=== PATIENT | female | born 1975 | race Two or more races ===

== ENCOUNTER 2016-03-05 08:03 | Emergency (ER) | payer MEDICAID, OTHER ==
[~2016-03-05] VITALS: Ht 162.6 cm; Wt 72.6 kg
[~2016-03-05 08:03] MED LIST: ALBUTEROL SULF8.5 GM INH; ALPRAZOLAM0.25 MG ORAL; BENADRYL25 MG ORAL; BENADRYL50 MG ORAL; CIPROFLOXACIN500 M2 ORAL; CLARITHROM250 MG/5 M PO; FLOMAX0.4 MG ORAL; IBUPROFEN600 MG ORAL; IBUPROFEN800 MG ORAL; METRONIDAZOLE500 MG ORAL; NAPROXEN500 M2 PO; NITROFURANTOIN100 M2 ORAL; NKM; NORCO 5-325 TA1 EACH ORAL; OMEPRAZOLE40 M1 ORAL; ONDANSETRON ODT4 MG ORAL; PEPCID20 MG ORAL; PHENAZOPYRIDIN200 MG ORAL; PREDNISONE20 MG ORAL; RANITIDINE HCL150 MG ORAL; SOMA350 MG PO; ZOFRAN ODT4 MG ORAL; ZOFRAN4 MG ORAL
[2016-03-05] MEDS ORDERED: IBUPROFEN600 MG ORAL (08:23)
[2016-03-05] MEDS ORDERED: Oxycodone/Acetaminophen 5-325 ORAL ONE (08:45)
[2016-03-05] MEDS ORDERED: IBUPROFEN800 M1 PO (08:45)
--- NOTE | 2016-03-05 09:07 | Emergency Room Report ---
History of Present Illness General Chief Complaint: Lower Extremity Injury Source: Patient Present Illness HPI 40 YO M with left foot pain for 4 days. Works as housekeeping lead. Denies direct trauma, falls, ankle twist. Denies fever/chills. Denies calf pain/swelling, lower extremity weakness. Doesnt run or exercise. Denies history of DM. Allergies: Coded Allergies: PENICILLINS (Verified Allergy, Mild, 04/26/12) Patient History Past Medical History: none Past Surgical History: none Pertinent Family History: none Social History: Denies: alcohol use, drug use, smoking Now: No Immunizations: UTD Reviewed Nursing Documentation: PMH: Agreed, PSxH: Agreed Nursing Documentation-PMH Past Medical History: No Stated History Hx Asthma: Yes Hx Gastrointestinal Problems: Yes - SBO, hiatal hernia Review of Systems All Other Systems: negative except mentioned in HPI Physical Exam Vital Signs Date Time Temp Pulse Resp B/P Pulse Ox O2 Delivery O2 Flow Rate FiO2 03/05/16 08:18 98.2 72 18 130/80 99 Room Air Sp02 EP Interpretation: reviewed, normal General Appearance: normal inspection, well appearing, no apparent distress, alert Head: atraumatic ENT: normal ENT inspection, hearing grossly normal, normal voice Neck: normal inspection, full range of motion, supple, no bony tend Respiratory: normal inspection, lungs clear, normal breath sounds, no respiratory distress, no retraction, no wheezing Cardiovascular #1: regular rate, rhythm, no edema Gastrointestinal: normal inspection, normal bowel sounds, non tender, soft, no guarding, no hernia Genitourinary: no CVA tenderness Musculoskeletal: normal inspection, back normal, normal range of motion, non- tender, no calf tenderness, Ze's Sign negative, other - Left foot: No obvious swelling, deformity or inflammation. Significant swelling to heel. No palpable bony ttp or spurs Neurologic: normal inspection, alert, responsive, speech normal Psychiatric: normal inspection, judgement/insight normal, mood/affect normal Skin: normal inspection, normal color, no rash Medical Decision Making Diagnostic Impression: Primary Impression: Plantar fasciitis of left foot ER Course 40 YO F with left foot pain. Xray unremarkable for occult fx Analgesia provided, improved Likely plantar fasciitis Advised plantar exercises, provided info Advised ICE, NSAIDS, PMD followup for Podiatry referral [place] home Last Vital Signs Date Time Temp Pulse Resp B/P Pulse Ox O2 Delivery O2 Flow Rate FiO2 03/05/16 08:18 98.2 72 18 130/80 99 Room Air Status: improved Disposition: HOME, SELF-CARE Condition: Improved Scripts Ibuprofen (Ibuprofen) 800 Mg Tablet 800 MG PO TID for 7 Days, #30 TAB Prov: DEYSI WALLER M.D. 03/05/16 Referrals: NON PHYSICIAN (PCP) Additional Instructions: - Apply ice 3-4 times a day (place foot in container of ice and water for best results) - Take Ibuprofen 800mg three times a day with food - Buy a padded heel support/insole for your sneakers - Ask your primary care doctor for a Podiatry referral DEYSI WALLER M.D. Mar 05, 2016 09:06
[2016-03-05 09:31] VITALS: BP 130/80
--- NOTE | 2016-03-05 11:53 | Diagnostic Imaging Report ---
Indication: Pain Comparison: None Findings: 3 views of the left foot were obtained. No acute fractures, malalignment, erosions or periostitis are identified. Bone mineralization is within normal limits. Soft tissues are unremarkable. Impression: No acute findings
== END 2016-03-05 09:34 | disposition home or self-care (01) ==
LOC: EMR 08:46
DX: M72.2 Plantar fascial fibromatosis (principal); E11.9 Type 2 diabetes mellitus without complications; Z87.09 Personal history of other diseases of the respiratory system
CPT/HCPCS: 99283

== ENCOUNTER 2016-05-28 15:37 | Emergency (ER) | payer OTHER ==
[~2016-05-28] VITALS: Ht 162.6 cm; Wt 82.6 kg
[~2016-05-28 15:37] MED LIST changes: +IBUPROFEN800 M1 PO
[2016-05-28] MEDS ORDERED: Morphine Sulfate 4mg/ml Inj IVP ONE (16:15)
[2016-05-28 16:30] LABS: APPEARANCE,URINE CLEAR; KETONES,URINE 1+ (NEGATIVE); LEUKOCYTE ESTERASE ,URINE 3+ (NEGATIVE); NITRITE,URINE NEGATIVE (NEGATIVE); PH,URINE 7 (4.5-8.0); PROTEIN,URINE NEGATIVE (NEGATIVE); UROBILINOGEN,URINE NORMAL MG/DL (0.0-1.0)
[2016-05-28 16:33] LABS: BASOPHILS % (AUTO) 0.8 % (0.0-2.0); EOSINOPHILS % (AUTO) 0.9 % (0.0-3.0); LYMPHOCYTES % (AUTO) 27.7 % (20.0-45.0); MEAN CORPUSCULAR HGB CONC 35.7 G/DL (32.0-36.0); MEAN CORPUSCULAR VOLUME 87 FL (80-99); MEAN PLATELET VOLUME 5.7 FL (6.5-10.1); NEUTROPHILS % (AUTO) 65.5 % (45.0-75.0); PLATELET COUNT 309 K/UL (150-450); RED BLOOD COUNT 4.81 M/UL (4.20-5.40); RED CELL DISTRIBUTION WIDTH 11.8 % (11.6-14.8)
[2016-05-28 16:43] LABS: AMORPHOUS SEDIMENT,UR FEW /LPF; BACTERIA,URINE MODERATE /HPF; SQUAMOUS EPITHELIAL CELL,UR FEW /LPF (NONE/OCC)
--- NOTE | 2016-05-28 16:43 | Emergency Room Report ---
History of Present Illness General Chief Complaint: Abdominal Pain Source: Patient Present Illness HPI Patient is a 41-year-old female presenting for right upper quadrant pain, nausea , vomiting, and diarrhea which began 2 days prior. The patient is concerned because she had a small bowel obstruction one year prior and this feels similar. The patient states that she was admitted and SBO resolved with suction. Pt denies any abdominal surgery . Pain is described as a 10/10 dull ache to the RUQ and radiates to the R flank. Pain worse with touch and vomiting. She denies any other symptoms including fever, chills, dysuria, hematuria, vaginal discharge, shortness of breath, chest pain, rash Allergies: Coded Allergies: PENICILLINS (Verified Allergy, Mild, 04/26/12) Patient History Past Medical History: see triage record Pertinent Family History: none Now: No Reviewed Nursing Documentation: PMH: Agreed, PSxH: Agreed Nursing Documentation-PM Past Medical History: No History, Except For Hx Asthma: Yes Hx Gastrointestinal Problems: Yes - SBO, hiatal hernia Review of Systems All Other Systems: negative except mentioned in HPI Physical Exam Vital Signs Date Time Temp Pulse Resp B/P Pulse Ox O2 Delivery O2 Flow Rate FiO2 05/28/16 15:53 98.1 71 12 122/85 99 Room Air Sp02 EP Interpretation: reviewed, normal General Appearance: no apparent distress, alert, GCS 15, non-toxic Head: normocephalic, atraumatic Eyes: bilateral eye PERRL, bilateral eye normal inspection ENT: hearing grossly normal, normal pharynx, no angioedema, normal voice Respiratory: chest non-tender, lungs clear, normal breath sounds, speaking full sentences Cardiovascular #1: regular rate, rhythm, no edema Gastrointestinal: normal bowel sounds, no guarding, tenderness - RUQ Rectal: deferred Musculoskeletal: back normal, gait/station normal, normal range of motion, non- tender Neurologic: alert, oriented x3, responsive, motor strength/tone normal, sensory intact, normal gait, speech normal Psychiatric: judgement/insight normal, memory normal, mood/affect normal, no suicidal/homicidal ideation Skin: normal color, no rash, warm/dry, well hydrated Lymphatic: no adenopathy Medical Decision Making PA Attestation Dr. babin is my supervising physician. Patient management was discussed with my supervising physician Diagnostic Impression: Primary Impression: Hiatal hernia Additional Impressions: Ovarian cyst Qualified Codes: N83.202 - Unspecified ovarian cyst, left side UTI (urinary tract infection) Qualified Codes: N39.0 - Urinary tract infection, site not specified ER Course Patient is a 41-year-old female presenting for right upper quadrant pain, nausea , vomiting, and diarrhea Differential diagnoses considered include but not limited to Cholecystitis, cholelithiasis, appendicitis, , UTI, gastroenteritis, SBO PE: Vitals WNL. NAD. Abdomen: Normal appearance. Non distended. No ecchymosis. Normal BS. + RUQ TTP. No McBurney point tenderness. No guarding. No CVA tenderness Labs: UA consistent with UTI. Otherwise unremarkable. CT shows ovarian cyst and hiatal hernia. Otherwise unremarkable. The patient was informed of these results and will followup with primary doctor and [facility]. She will be treated for UTI. ER precautions are given Laboratory Tests Test 05/28/16 16:10 White Blood Count 9.0 K/UL (4.8-10.8) Red Blood Count 4.81 M/UL (4.20-5.40) Hemoglobin 14.9 G/DL (12.0-16.0) Hematocrit 41.8 % (37.0-47.0) Mean Corpuscular Volume 87 FL (80-99) Mean Corpuscular Hemoglobin 31.0 PG (27.0-31.0) Mean Corpuscular Hemoglobin Concent 35.7 G/DL (32.0-36.0) Red Cell Distribution Width 11.8 % (11.6-14.8) Platelet Count 309 K/UL (150-450) Mean Platelet Volume 5.7 FL (6.5-10.1) L Neutrophils (%) (Auto) 65.5 % (45.0-75.0) Lymphocytes (%) (Auto) 27.7 % (20.0-45.0) Monocytes (%) (Auto) 5.0 % (1.0-10.0) Eosinophils (%) (Auto) 0.9 % (0.0-3.0) Basophils (%) (Auto) 0.8 % (0.0-2.0) Urine Color Pale yellow Urine Appearance Clear Urine pH 7 (4.5-8.0) Urine Specific [place] 1.010 (1.005-1.035) Urine Protein Negative (NEGATIVE) Urine Glucose (UA) Negative (NEGATIVE) Urine Ketones 1+ (NEGATIVE) H Urine Occult Blood Negative (NEGATIVE) Urine Nitrite Negative (NEGATIVE) Urine Bilirubin Negative (NEGATIVE) Urine Urobilinogen Normal MG/DL (0.0-1.0) Urine Leukocyte Esterase 3+ (NEGATIVE) H Urine RBC 2-4 /HPF (0 - 2) H Urine WBC 5-10 /HPF (0 - 2) H Urine Squamous Epithelial Cells Few /LPF (NONE/OCC) Urine Amorphous Sediment Few /LPF (NONE) H Urine Bacteria Moderate /HPF (NONE) H Urine HCG, Qualitative Negative Sodium Level 135 mEQ/L (135-145) Potassium Level 3.7 mEQ/L (3.4-4.9) Chloride Level 98 mEQ/L (98-107) Carbon Dioxide Level 22 mEQ/L (20-30) Anion Gap 15 (5-15) Blood Urea Nitrogen 12 mg/dL (7-23) Creatinine 0.7 mg/dL (0.5-0.9) Estimate Glomerular Filtration Rate > 60 mL/min (>60) Glucose Level 99 mg/dL (74-106) Calcium Level 9.3 mg/dL (8.6-10.2) Total Bilirubin 0.6 mg/dL (0.0-1.2) Aspartate Amino Transferase (AST) 12 U/L (5-40) Alanine Aminotransferase (ALT) 10 U/L (3-33) Alkaline Phosphatase 53 U/L (35-104) Total Protein 7.2 g/dL (6.6-8.7) Albumin 4.3 g/dL (3.5-5.2) Globulin 2.9 g/dL Albumin/Globulin Ratio 1.4 (1.0-2.7) Lipase 19 U/L (< 60) Lab Results Impression CBC and CMP are unremarkable. Urinalysis shows white blood cells with bacteria CT/MRI/US Diagnostic Results CT/MRI/US Diagnostic Results : Imaging Test Ordered: CT abd/pelvis Impression L sided 1.5 cm ovarian cyst. Hiatal hernia Last Vital Signs Date Time Temp Pulse Resp B/P Pulse Ox O2 Delivery O2 Flow Rate FiO2 05/28/16 15:53 98.1 71 12 122/85 99 Room Air Status: improved Disposition: HOME, SELF-CARE Condition: Improved Scripts Acetaminophen* (TYLENOL EXTRA STRENGTH*) 500 Mg Tablet 500 MG ORAL Q8H Y for Prn Headache/Temp > 101, #30 TAB 0 Refills Prov: GUS ALAN.APoly 05/28/16 Ondansetron* (ZOFRAN*) 4 Mg Tablet 4 MG ORAL Q6H Y for Nausea & Vomiting, #15 TAB Prov: GUS ALAN.APoly 05/28/16 Cephalexin* (KEFLEX*) 500 Mg Capsule 500 MG ORAL EVERY 6 HOURS, #28 CAP Prov: GUS ALAN.A. 05/28/16 Referrals: [facility] (PCP) GUS ALAN May 28, 2016 16:43
[2016-05-28 16:53] LABS: ALANINE AMINOTRANSFERASE 10 U/L (3-33); ALBUMIN/GLOBULIN RATIO 1.4 (1.0-2.7); ANION GAP 15 (5-15); ASPARTATE AMINO TRANSFERASE 12 U/L (5-40); CALCIUM 9.3 mg/dL (8.6-10.2); CARBON DIOXIDE 22 mEQ/L (20-30); CHLORIDE 98 mEQ/L (98-107); CREATININE 0.7 mg/dL (0.5-0.9); GLOMERULAR FILTRATION RATE > 60 mL/min (>60); HEMOLYSIS 6; LIPASE 19 U/L (< 60); POTASSIUM 3.7 mEQ/L (3.4-4.9); SODIUM 135 mEQ/L (135-145); TOTAL PROTEIN 7.2 g/dL (6.6-8.7)
[2016-05-28 17:44] VITALS: BP 117/75
[2016-05-28] MEDS ORDERED: ZOFRAN4 M3 ORAL (18:54)
[2016-05-28] MEDS ORDERED: CEPHALEXIN500 MG ORAL (18:54)
[2016-05-28] MEDS ORDERED: TYLENOL EXTRA500 MG ORAL (18:54)
[2016-05-28 19:13] VITALS: BP 114/76
[2016-05-28 19:14] VITALS: BP 114/76
--- NOTE | 2016-05-29 10:33 | Diagnostic Imaging Report ---
Indications: Abdominal pain Technique: Continuous helical CT imaging of the abdomen and pelvis was performed with automatic exposure control following administration of nonionic IV contrast only, on a Siemens sensation [address] scanner. Axial, coronal, sagittal images were reconstructed at 5 mm slice thickness. No oral contrast was administered per requesting physician's order, despite no contraindications listed in either submitted clinical data or tech note.. Vein rupture and subcutaneous contrast infiltration midway through intravenous contrast injection. CTDI volume(s): 19 mGy Total DLP: 1003 mGy-cm Findings: Comparison: Noncontrast CT abdomen pelvis 06/23/15 Lack of oral contrast limits evaluation of gastrointestinal tract, nondilated throughout. Appendix not identified. No obvious mural thickening, adjacent stranding, extraluminal gas or fluid collections identified. 3.7 cm circumscribed focus of soft tissue prominence again noted along right lateral margin of the cervix/vagina, currently demonstrating multifocal central low attenuation with septations. 2 cm thickwalled cystic structure in left ovary. Liver, gallbladder, pancreas, spleen, adrenal glands, kidneys, unopacified ureters and urinary bladder, uterus, vascular structures, retroperitoneum, mesentery, remainder visualized abdominopelvic anatomy unremarkable. Small irregular pleural-based linear densities and dependent portions of both lung bases. No focal skeletal abnormality identified. IMPRESSION: No evidence of acute abdominopelvic disease, with limitation as described. Subtle but potentially significant abnormalities the gastrointestinal tract may be missed. Repeat CT scan with full oral and IV contrast preparation recommended for more complete evaluation, as clinically indicated Nonvisualization of appendix--no evidence of acute appendicitis Cervical/paracervical mass most likely nabothian cysts. Cervical or vaginal pathology not excludable. Clinical and ultrasound correlation suggested. Probable involuting follicle left ovary Minimal pulmonary bibasal subsegmental atelectasis This correlates with Dr. Alvarez's preliminary report.
== END 2016-05-28 19:18 | disposition home or self-care (01) ==
LOC: EMR 16:10
DX: K44.9 Diaphragmatic hernia without obstruction or gangrene (principal); N83.202 Unspecified ovarian cyst, left side; N39.0 Urinary tract infection, site not specified; Z88.0 Allergy status to penicillin; J45.909 Unspecified asthma, uncomplicated
CPT/HCPCS: 36415; 74177; 80053; 81003; 81025; 83690; 85025; 87086; 96374; 96375; 99284; J2270; J2405; Q9967

== ENCOUNTER 2016-12-16 11:53 | Emergency (ER) | payer OTHER ==
[~2016-12-16] VITALS: Ht 162.6 cm; Wt 83.0 kg
[~2016-12-16 11:53] MED LIST changes: +CEPHALEXIN500 MG ORAL; +TYLENOL EXTRA500 MG ORAL; +ZOFRAN4 M3 ORAL
[2016-12-16] MEDS ORDERED: Pseudoephedrine 30mg tab ORAL ONE (12:30)
[2016-12-16] MEDS ORDERED: SUDAFED 12 HOU120 M1 PO (13:26)
[2016-12-16] MEDS ORDERED: PREDNISONE20 MG ORAL (13:26)
[2016-12-16] MEDS ORDERED: BENADRYL25 MG ORAL (13:26)
[2016-12-16] MEDS ORDERED: IBUPROFEN600 MG ORAL (13:26)
[2016-12-16] MEDS ORDERED: Metoclopramide 10mg/2ml Inj IM ONE (13:30)
[2016-12-16 13:40] VITALS: BP 135/91
--- NOTE | 2016-12-16 15:00 | Emergency Room Report ---
History of Present Illness General Chief Complaint: General Complaint Source: Patient Present Illness HPI The patient is a 41-year-old female with a history of seasonal allergies presenting for nasal congestion, facial pain, sore throat, and chills. She was seen at another facility approximately 1 week prior and given prescription for azithromycin for suspected URI. She states that symptoms have worsened since then. She was not given any other medications. Pain is a 6/10 dull ache primarily to the face and is worse with head movement. Pain does not radiate. She denies any other symptoms including vomiting, dyspnea, CP, hemoptysis Allergies: Coded Allergies: PENICILLINS (Verified Allergy, Mild, 04/26/12) Patient History Past Medical History: see triage record Pertinent Family History: none Last Menstrual Period: 11/28/16 Now: No Reviewed Nursing Documentation: PMH: Agreed, PSxH: Agreed Nursing Documentation-PMH Past Medical History: No Stated History Hx Asthma: Yes Hx Gastrointestinal Problems: Yes - SBO, hiatal hernia Physical Exam Vital Signs Date Time Temp Pulse Resp B/P (MAP) Pulse Ox O2 Delivery O2 Flow Rate FiO2 12/16/16 11:55 97.5 76 18 150/90 100 Room Air Sp02 EP Interpretation: reviewed, normal General Appearance: no apparent distress, alert, GCS 15, non-toxic Head: normocephalic, atraumatic Eyes: bilateral eye normal inspection, bilateral eye PERRL ENT: hearing grossly normal, normal pharynx, no angioedema, normal voice, uvula midline, other - + TTP over both maxillary and frontal sinuses. Neck: full range of motion, supple/symm/no masses Respiratory: chest non-tender, lungs clear, normal breath sounds, speaking full sentences Cardiovascular #1: regular rate, rhythm, no edema Musculoskeletal: back normal, gait/station normal, normal range of motion, non- tender Neurologic: alert, oriented x3, responsive, motor strength/tone normal, sensory intact, speech normal Psychiatric: judgement/insight normal, memory normal, mood/affect normal, no suicidal/homicidal ideation Skin: normal color, no rash, warm/dry, well hydrated Medical Decision Making PA Attestation Dr. Tompkins is my supervising physician. Patient management was discussed with my supervising physician Diagnostic Impression: Primary Impression: Sinusitis Qualified Codes: J01.00 - Acute maxillary sinusitis, unspecified ER Course The patient is a 41-year-old female with a history of seasonal allergies presenting for nasal congestion, facial pain, sore throat, and chills Differential diagnosis include but not limited to pharyngitis, sinusitis, AOM, bronchitis, PNA, allergic reaction, among others PE: Vitals WNL. NAD + TTP over both maxillary and frontal sinuses. Lungs CTA bilat. No wheezing. No accessory muscle use. Heart: RRR, no abnormal heart sounds Ears: external auditory canal clear. Non erythematous. Bilat TM intact. Cone of light present bilat. No bulging of TM. No serous fluid seen. + nasal D/C no anterior cervical lymphad No tonsillar exudate. Uvula midline.Oropharynx non erythematous No stridor The patient is given oral steroids, pain medication, and antiemetic as she has recently become nauseous She is feeling better and will be discharged home with prescription for oral steroids, decongestant, antihistamine, and pain medication ER precautions given Last Vital Signs Date Time Temp Pulse Resp B/P (MAP) Pulse Ox O2 Delivery O2 Flow Rate FiO2 12/16/16 13:40 98.0 69 15 135/91 97 Room Air Status: improved Disposition: HOME, SELF-CARE Condition: Improved Scripts Ibuprofen* (MOTRIN*) 600 Mg Tablet 600 MG ORAL Q8H Y for For Pain, #30 TAB 0 Refills Prov: TERZIAN,GUS P.A. 12/16/16 Diphenhydramine Hcl* (BENADRYL*) 25 Mg Capsule 25 MG ORAL Q6H Y for Itching, #20 CAP Prov: TERZIAN,GUS P.A. 12/16/16 Prednisone* (PREDNISONE*) 20 Mg Tablet 40 MG ORAL DAILY, #8 TAB Prov: TERZIAN,GUS P.A. 12/16/16 Pseudoephedrine Hcl (SUDAFED 12 HOUR) 120 Mg Tablet.er 120 MG PO BID, #14 TAB Prov: TERZIAN,GUS P.A. 12/16/16 Patient Instructions: Sinusitis, Adult Additional Instructions: I discussed my findings with the patient. All questions and concerns have been answered. Treatment and medication compliance have been addressed. I advised the patient that they need to follow up with primary doctor within 3 days. Return to ED if pain remains or worsens, cough worsens or remains, you notice blood in your sputum, you notice wheezing, you have difficulty swallowing, you have difficulty breathing, you experience a fever, or if needed for any reason. Patient verbalized understanding of discharge instructions. GUS ALAN Dec 16, 2016 15:00
== END 2016-12-16 13:40 | disposition home or self-care (01) ==
LOC: EMR 13:22
DX: J32.9 Chronic sinusitis, unspecified (principal); J45.909 Unspecified asthma, uncomplicated; Z88.0 Allergy status to penicillin
CPT/HCPCS: 96374; 99284; J2765